=== PATIENT | female | born 1930 | race Caucasian/White ===

== ENCOUNTER → 2016-09-13 | Outpatient (CLI) | payer MEDICARE ==
--- NOTE | 2016-09-13 13:14 | REP ---
CHEST X-RAY PA AND LATERAL: 09/13/2016. Clinical history: Dyspnea and cough. Evaluate for pneumonia. Comparison: Chest x-ray 01/07/2014, CT chest 06/15/2009. Findings: Lungs are well inflated. There is some peribronchial thickening and streaky densities both lower lung zones that may reflect some bronchitis and/or reactive airway disease. There is some basilar fibrotic change as well. Underlying COPD with some bullous emphysematous changes are suggested. The heart is mildly enlarged. There is left atrial and ventricular enlargement. The aorta is calcified at the arch, ectatic but without much change. The pulmonary arteries are prominent centrally suggesting pulmonary artery hypertension. No effusion, dense consolidation or lung mass. Bony thorax shows degenerative changes without acute compression deformity. There is no free air. Impression: 1. Some infrahilar and lower lung zone changes of bronchitis or reactive airway disease without dense consolidation or pleural effusion. 2. Some mild cardiomegaly with left atrial and ventricular configuration. No edema. 3. 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 No aneurysm. Signed by Gagan Pablo MD 09/13/2016 08:19 P
== END ==
LOC: M LRY 11:26
PROVIDERS: ATTEND Nurse Practitioner Family
DX: J44.9 Chronic obstructive pulmonary disease, unspecified (principal); I51.7 Cardiomegaly
CPT/HCPCS: 71020; 87804; 94640; G0463

== ENCOUNTER → 2016-09-13 | Outpatient (CLI) | payer MEDICARE | LOC: M LRY 11:18 | PROVIDERS: ATTEND Nurse Practitioner Family | DX: J44.1 Chronic obstructive pulmonary disease with (acute) exacerbation (principal); R06.02 Shortness of breath ==

== ENCOUNTER 2019-01-07 21:22 | Emergency (ER) | payer MEDICARE ==
[~2019-01-07] VITALS: Ht 154.9 cm; Wt 58.6 kg
[2019-01-07] MEDS ORDERED: IPRATROPIUM 0.5MG/ALBUTEROL 2.5MG INH SOL UD 3ML (DUONEB)(J7620) NEB ONE (22:00)
[2019-01-07] MEDS ORDERED: dexameTHASONE 20 MG/5 ML VIAL (J1100) IV ONE (22:00)
[2019-01-07] MEDS ORDERED: ALBUTEROL SULFATE 2.5 MG/0.5 ML INH NEB SOLN INH ONE (22:00)
[2019-01-07 22:43] LABS: BASO % 0.7 % (0.0-1.0); EOS # 0.3 10^3/uL (0.0-0.50); EOS % 4.7 % (0.0-3.0); HEMATOCRIT 41.5 % (36.0-47.0); HEMOGLOBIN 12.9 g/dl (12.0-15.5); LYMPH # 1.9 10^3/uL (1.5-4.5); LYMPH % 35.6 % (24.0-44.0); MEAN CORPUSCULAR HEMOGLOBIN 26.8 pg (27.0-33.0); MEAN CORPUSCULAR HGB CONC 31.1 g/dl (32.0-36.5); MEAN CORPUSCULAR VOLUME 86.3 fl (80.0-96.0); MONO # 0.5 10^3/uL (0.0-0.8); MONO % 9.4 % (0.0-5.0); NEUTROPHILS # 2.6 10^3/uL (1.8-7.7); NEUTROPHILS % 49.2 % (36.0-66.0); PLATELET COUNT, AUTOMATED 265 10^3/uL (150-450); RED BLOOD COUNT 4.81 10^6/uL (4.00-5.40); WHITE BLOOD COUNT 5.3 10^3/uL (4.0-10.0)
[2019-01-07 23:13] LABS: ALBUMIN 3.2 GM/DL (3.2-5.2); ALT/SGPT 11 U/L (12-78); BILIRUBIN,DIRECT 0.1 MG/DL (0.0-0.2); BILIRUBIN,TOTAL 0.2 MG/DL (0.2-1.0); BLOOD UREA NITROGEN 14 MG/DL (7-18); CALCIUM LEVEL 8.9 MG/DL (8.8-10.2); CARBON DIOXIDE LEVEL 32 MEQ/L (21-32); CHLORIDE LEVEL 107 MEQ/L (98-107); CK-MB VALUE MASS 1.4 NG/ML (<3.6); CPK CREATINE PHOSPHOKINASE 34 U/L (26-192); CREATININE FOR GFR 0.73 MG/DL (0.55-1.30); GLOMERULAR FILTRATION RATE > 60.0 (>32); GLUCOSE, FASTING 93 MG/DL (70-100); MB/CK RELATIVE INDEX 4.12 (< OR =4); NT-PRO BNP 141 PG/ML (<450); POTASSIUM SERUM 4.5 MEQ/L (3.5-5.1); SODIUM LEVEL 142 MEQ/L (136-145); TOTAL PROTEIN 6.2 GM/DL (6.4-8.2); TROPONIN I < 0.02 NG/ML (< 0.10)
[2019-01-08] MEDS ORDERED: VENTAER INH (00:29)
[2019-01-08] MEDS ORDERED: PRED20TA PO (00:29)
[2019-01-08] MEDS ORDERED: ALBUTEROL 90 MCG/ACT 8GM HFA INHALER INH ONE (00:30)
[2019-01-08 00:45] VITALS: BP 103/59
--- NOTE | 2019-01-08 07:43 | REP ---
Portable chest, 10:10 p.m., single AP view with the patient upright: Comparison is 09/18/2016. Lung ch appear hyperinflated with crowding of the interstitial markings in the lower lung zones, compatible with COPD. The lung ch otherwise clear. Cardiac size is normal for portable positioning. The the courtney, mediastinum, skeletal structures are unremarkable. Impression: There are findings compatible with COPD. There are no acute cardiopulmonary findings. Electronically Signed by Corey Nance MD 01/08/2019 07:35 A
--- NOTE | 2019-01-08 19:25 | ECGEPIP ---
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
== END 2019-01-08 00:46 | disposition home or self-care (01) ==
LOC: M ED 21:22
DX: J44.1 Chronic obstructive pulmonary disease with (acute) exacerbation (principal); R94.31 Abnormal electrocardiogram [ECG] [EKG]; I10 Essential (primary) hypertension; Z88.0 Allergy status to penicillin; Z88.2 Allergy status to sulfonamides; Z91.012 Allergy to eggs
CPT/HCPCS: 36415; 71045; 80048; 80076; 82550; 82553; 83880; 84443; 84484; 85025; 93005; 93041; 94640; 94760; 96374; 99285; J1100

== ENCOUNTER 2019-05-23 18:58 | Inpatient (IN) | payer MEDICARE ==
[~2019-05-23] VITALS: Ht 160 cm; Wt 59.1 kg
[~2019-05-23 18:58] MED LIST: PRED20TA PO; VENTAER INH
[2019-05-23] MEDS ORDERED: LISI10TA4 PO (19:11)
[2019-05-23] MEDS ORDERED: CLIN-30 PO (19:11)
[2019-05-23] MEDS ORDERED: NYST10OI TOP (19:11)
[2019-05-23] MEDS ORDERED: FLUC100T PO (19:11)
[2019-05-23 19:59] LABS: HEMATOCRIT 43.5 % (36.0-47.0); HEMOGLOBIN 13.6 g/dl (12.0-15.5); LYMPH # 0.4 10^3/uL (1.5-5.0); MEAN CORPUSCULAR HGB CONC 31.3 g/dl (32.0-36.5); MEAN CORPUSCULAR VOLUME 86.3 fl (80.0-96.0); MONO # 0.1 10^3/uL (0.0-0.8); MONO % 1.2 % (0.0-5.0); NEUTROPHILS # 3.8 10^3/uL (1.5-8.5); NEUTROPHILS % 88.6 % (36.0-66.0); PLATELET COUNT, AUTOMATED 261 10^3/uL (150-450); RED BLOOD COUNT 5.04 10^6/uL (4.00-5.40); WHITE BLOOD COUNT 4.3 10^3/uL (4.0-10.0)
[2019-05-23] MEDS ORDERED: dexameTHASONE 20 MG/5 ML VIAL (J1100) IV ONE (20:00)
[2019-05-23 20:03] LABS: ABG BASE EXCESS -2.6 (-2.0-2.0); ABG HCO3 21.6 MEQ/L (22.0-26.0); ABG O2 SATURATION 93.4 % (95.0-99.0); ABG PARTIAL PRESSURE CO2 35.7 mmHg (35.0-45.0); ABG PARTIAL PRESSURE O2 65.9 mmHg (75.0-100.0); ABG STANDARD HCO3 22.2 MEQ/L (22.0-26.0); ABG TOTAL CO2 22.7 MEQ/L (23.0-31.0)
[2019-05-23] MEDS: IPRATROPIUM 0.5MG/ALBUTEROL 2.5MG INH SOL UD 3ML (DUONEB)(J7620) NEB SCH ×3 (20:03→21:22)
--- NOTE | 2019-05-23 20:18 | REP ---
Clinical: Dyspnea. Comparison: 01/07/2019. Findings: Stable cardiomegaly and diffuse COPD/interstitial disease. No obvious consolidation, effusion, or pneumothorax. Skeletal structures are intact. Impression: Chronic stable changes. No obvious acute consolidation or effusion. Electronically Signed by Rigo Botello MD 05/23/2019 08:09 P
[2019-05-23 20:22] LABS: BLOOD UREA NITROGEN 12 MG/DL (7-18); CALCIUM LEVEL 9.2 MG/DL (8.8-10.2); CARBON DIOXIDE LEVEL 26 MEQ/L (21-32); CHLORIDE LEVEL 103 MEQ/L (98-107); CPK CREATINE PHOSPHOKINASE 75 U/L (26-192); CREATININE FOR GFR 0.93 MG/DL (0.55-1.30); GLOMERULAR FILTRATION RATE > 60.0 (>32); GLUCOSE, FASTING 186 MG/DL (70-100); MB/CK RELATIVE INDEX 2.67 (< OR =4); NT-PRO BNP 232 PG/ML (<450); POTASSIUM SERUM 4.1 MEQ/L (3.5-5.1); SODIUM LEVEL 137 MEQ/L (136-145); TROPONIN I < 0.02 NG/ML (< 0.10)
[2019-05-23] MEDS ORDERED: ISOVUE-370 76% 100ML VIAL (Q9967) As Ordered ONE (20:26)
[2019-05-23] MEDS ORDERED: NS 500 ML IV ONE (20:30)
[2019-05-23] MEDS ORDERED: ALBU83IN INH (21:30)
[2019-05-23] MEDS ORDERED: MEMA14CA PO (21:30)
[2019-05-23] MEDS ORDERED: PRED20TA PO (21:30)
--- NOTE | 2019-05-23 21:46 | REPVR ---
PROCEDURE INFORMATION: Exam: CT Angiography Chest With Contrast Exam date and time: 05/23/2019 9:10 PM Clinical history: 89 years old, female; Dyspnea; Additional info: Dysp TECHNIQUE: Imaging protocol: Computed tomographic angiography of the chest with intravenous contrast. 3D rendering: MIP reconstructed images were created and reviewed. Radiation optimization: All CT scans at this facility use at least one of these dose optimization techniques: automated exposure control; mA and/or kV adjustment per patient size (includes targeted exams where dose is matched to clinical indication); or iterative reconstruction. Contrast material: ISOVUE 370; Contrast volume: 75 ml; Contrast route: IV; COMPARISON: CR Chest, 1 view 05/23/2019 7:59 PM FINDINGS: Pulmonary arteries: The main pulmonary artery measures 27 mm. No pulmonary embolism is identified. Aorta: The ascending thoracic aorta measures 32 mm. Lungs: Minimal diffuse bullous change. Slight interstitial prominence and minimal bibasilar fibro-atelectatic change. Calcified granuloma right upper lobe. Pleural space: Unremarkable. No pneumothorax. No pleural effusion. Heart: Coronary artery calcifications are present. The left atrium measures 4.3 cm in its AP dimension. Mediastinum: Internal debris or mucus along the distal trachea extending just into the right main bronchus. Lymph nodes: Unremarkable. No enlarged lymph nodes. Bones/joints: Unremarkable. No acute fracture. Soft tissues: Unremarkable. IMPRESSION: 1. Borderline cardiomegaly. 2. Minimal diffuse bullous change with slight interstitial prominence and minimal bibasilar fibro-atelectatic change. 3. Internal debris or mucus in the distal trachea and proximal right main bronchus. 4. No pulmonary embolism is identified. Electronically signed by: Cornelius Corcoran On 05/23/2019 21:45:48 PM
[2019-05-23] MEDS: LEVALBUTEROL 1.25 MG/0.5 ML CONCENTRATE NEB NEB SCH (23:07)
[2019-05-23] MEDS ORDERED: NICOTINE POLACRILEX 2 MG GUM PO PRN (23:15)
[2019-05-23] MEDS: DOXYCYCLINE HYCLATE 100 MG in D5W MINI-BAG PLUS 100 ML IV SCH (23:23)
[2019-05-23] MEDS ORDERED: NICOTINE 14 MG/24 HR TRANSDERMAL TD ONE (23:30)
--- NOTE | 2019-05-24 00:23 | HPE ---
DATE OF ADMISSION: 05/23/2019 PRIMARY CARE PHYSICIAN: Dr. Pascual Kilgore CHIEF COMPLAINT: Shortness of breath. HISTORY OF THE PRESENT ILLNESS: This is an 89-year-old DO NOT RESUSCITATE, DO NOT INTUBATE female with a history of chronic obstructive pulmonary disease (COPD), managed by his primary care physician, who was in her usual state of health with chronic cough and chronic shortness of breath but not oxygen dependent until two days ago. Patient went to the drug store to get her medications, along with her son, and she appeared to be coughing a lot more. Her neighbor called the son and the [id number] today because she was found to have shaking chills at home with worsening shortness of breath and wheezing despite nebulizer treatments every 4 hours at home. She has recently been given steroids and something for a yeast infection, was not breathing well and felt sick to her stomach, but did not have nausea or vomiting. Otherwise denied any headache. Did have some chills. No diarrhea. She lives alone with advancing dementia, but has not had any episodes of getting lost or leaving the stove on. Family is concerned about her living alone and would like to speak with social work program coordinator for placement in the future. 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 She otherwise has had no sick contacts. No sinus congestion. No chest pain, pressure, tightness, palpitations, lightheadedness. Denies any changes in appetite, but does not eat well per the family. [id number]-[id number] sometimes will make something and leave it for her, but patient usually will make her own meals. Patient has not had any falls, weakness but has been increasingly forgetful for the past few years, worrying the family that she will need placement soon. In the emergency room (ER), she was afebrile, 98.4, she had overt wheezing which did not improve with nebulizer treatment. She was given IV Decadron 20 mg. Hospitalist was called for admission. Chest x-ray shows chronic changes with no acute consolidation or effusion. CT chest showed no pulmonary embolism. There is internal debris/mucus in distal trachea and proximal right main bronchus, borderline cardiomegaly and minimal diffuse bullous change with prominence and minimal bibasilar fibro-atelectasis. Per the family, patient continues to smoke cigarettes - one pack a day, and she has been doing this for decades, refuses to quit. PAST MEDICAL HISTORY: COPD. Depression. Osteoporosis. Dyslipidemia. PAST SURGICAL HISTORY: Lumbar laminectomy. Colon cancer and resection. Right knee replacement. Bunionectomy. Bilateral cataract surgery. Left total knee replacement. ALLERGIES: To PENICILLIN, SULFA, and EGG YOLK. HOME MEDICATIONS: - albuterol 2.5 mg every 4 hours as needed - clindamycin 150 mg three times a day - fluconazole 100 mg daily - lisinopril 10 mg daily - Nystatin topically twice a day - prednisone 20 mg twice a day - memantine 14 mg daily SOCIAL HISTORY: Patient lives alone in a one-level home, five stairs into the home. Patient smokes a pack a day, has been smoking for over 50 years. No alcohol use. Retired high school educator. Patient is DO NOT RESUSCITATE, DO NOT INTUBATE. Healthcare proxy is the patient's son, Braulio Parmar, retired, . FAMILY HISTORY: Father had an motor vehicle accident at age 48, mother of a heart attack, age 58. Two sisters had coronary artery disease. REVIEW OF SYSTEMS: Per history of the present illness. 12-point system otherwise negative. PHYSICAL EXAMINATION: Temperature 98.4, pulse 100, respiratory rate 25, blood pressure 128/67, 74% on room air. Generally, patient is demented, unable to provide any history. She is sleeping but arousable, answers yes or no questions appropriately. There is no respiratory distress, able to speak in full sentences. No tracheal deviation. She is edentulous. No use of respiratory accessory muscles. No jugular venous distention (JVD). No thyromegaly. Lungs diminished, bilateral wheezing. Heart: S1, S2, sinus tachycardia. Abdomen is soft, nontender, nondistended. Extremities: No pitting edema. LABORATORY DATA: White count 4.3, hemoglobin 13, hematocrit 43, platelet count 261, 88% neutrophils, 10% lymphocytes. Sodium 137, potassium 4.1, chloride 103, bicarbonate 26, BUN 12, creatinine 0.93, glucose 186, calcium 9.2, total CK 75, MB fraction of 2, troponin less than 0.02, BNP of 232. CT chest: No pulmonary embolism, borderline cardiomegaly, bullous, , minimal bibasilar fibro-atelectasis, internal debris/mucus in the distal trachea and proximal right main bronchus. ASSESSMENT AND PLAN: An 89-year-old female, DO NOT RESUSCITATE, DO NOT INTUBATE (DNR, DNI) with a history of COPD, osteoporosis, dyslipidemia, depression, bilateral knee replacements, colon cancer with resection, presents with worsening shortness of breath, not improved with nebulizers at home, recently treated for a yeast infection with Diflucan and prednisone for COPD exacerbation as an outpatient. Admitted as an inpatient for two midnights due to failed therapy. IMPRESSION: 1. Acute COPD exacerbation. On nebulizer treatment every 4 hours with Xopenex due to tachycardia. Currently on supplemental oxygen due to hypoxia, doxycycline 100 mg every 12 hours, Bacid to decrease risk of Clostridium difficile. No obvious pneumonia on the CT of the chest. No pulmonary embolism. BNP is 200 and likely to have heart failure or fluid overload. 2. Acute hypoxic respiratory failure, 74% on room air. Currently on two liters nasal cannula with 96% on three liters nasal cannula. Patient has no pulmonary embolism on exam. Continue with Solu-Medrol and treatment for COPD exacerbation. No obvious pneumonia on CT chest. 3. Advanced dementia. May continue on her home dose of memantine. Patient's family is requesting social work consult for possible placement in the future. 4. Depression. No suicidal ideation. 5. Yeast infection. Continue on fluconazole. 6. Hypertension. If blood pressure permits, may resume home dose of lisinopril. Hold for systolic pressure less than 120 or creatinine greater than 1.5. CODE STATUS: DO NOT RESUSCITATE, DO NOT INTUBATE. DIET: COPD diet. MTDD
[2019-05-24 00:41] VITALS: BP 122/58
[2019-05-24] MEDS: methylPREDNISolone INJ 125 MG/2 ML VIAL (J2930) IV SCH ×2 (01:10→08:12)
[2019-05-24] MEDS: LEVALBUTEROL 1.25 MG/0.5 ML CONCENTRATE NEB NEB SCH ×6 (04:15→23:45)
[2019-05-24 05:59] VITALS: BP 135/68
[2019-05-24 06:43] LABS: HEMATOCRIT 38.8 % (36.0-47.0); HEMOGLOBIN 12.4 g/dl (12.0-15.5); MEAN CORPUSCULAR HEMOGLOBIN 26.4 pg (27.0-33.0); MEAN CORPUSCULAR VOLUME 82.7 fl (80.0-96.0); PLATELET COUNT, AUTOMATED 272 10^3/uL (150-450); RED BLOOD COUNT 4.69 10^6/uL (4.00-5.40)
[2019-05-24 07:11] LABS: BLOOD UREA NITROGEN 12 MG/DL (7-18); CALCIUM LEVEL 8.7 MG/DL (8.8-10.2); CARBON DIOXIDE LEVEL 26 MEQ/L (21-32); CHLORIDE LEVEL 106 MEQ/L (98-107); GLOMERULAR FILTRATION RATE > 60.0 (>32); GLUCOSE, FASTING 151 MG/DL (70-100); POTASSIUM SERUM 3.9 MEQ/L (3.5-5.1); SODIUM LEVEL 139 MEQ/L (136-145)
[2019-05-24] MEDS: OMEPRAZOLE 20 MG CAP PO SCH (08:13)
[2019-05-24] MEDS: DOXYCYCLINE HYCLATE 100 MG in D5W MINI-BAG PLUS 100 ML IV SCH ×2 (08:13→21:10)
[2019-05-24] MEDS: LACTOBACILLUS ACIDOPHILUS CAP (BACID) PO SCH ×2 (08:13→18:03)
[2019-05-24] MEDS: FLUCONAZOLE 100 MG TAB PO SCH (08:13)
[2019-05-24] MEDS: NICOTINE 14 MG/24 HR TRANSDERMAL TD SCH (08:14)
[2019-05-24] MEDS: LISINOPRIL 10 MG TAB PO SCH (08:14)
--- NOTE | 2019-05-24 08:47 | IPN ---
DATE: 05/24/2019 PRIMARY CARE PROVIDER: Dr. Jeffery Kilgore ATTENDING PHYSICIAN: Hospitalist service. HISTORY: Orly Tavera was seen on 5 sheth. Admitted with chronic obstructive pulmonary disease (COPD) exacerbation. She is more appropriate today. She is answering questions. She is still short of breath but says she feels better than yesterday. Denies any pleuritic pain, fever, chest pain. PHYSICAL EXAM: Vital signs: Stable. Oxygen saturation 90% on 2 liters. Afebrile. General appearance: Elderly, frail, lying in bed. Opens her eyes. Answers questions. HEENT: Unremarkable. Lungs: Expiratory wheezes in all ch. Heart: Regular rate and rhythm. Abdomen: Soft, nontender. No peripheral edema. LABS: CBC unremarkable. BMP unremarkable. IMPRESSION: 1. Chronic obstructive pulmonary disease exacerbation. Continue her current regimen of doxycycline (currently intravenous, will change to oral tomorrow). On nebulized bronchodilator and empiric IV steroids. Reducing his dose of steroid therapy as it might exacerbate her dementia. Patient has DO NOT RESUSCITATE/DO NOT INTUBATE status. 2. Dementia. Continue Namenda. Seeing this is fairly advanced placement is being pursued by family. 3. Hypertensive heart disease. Continue lisinopril 10 mg daily. 4. Tobacco abuse. She is on a nicotine substitution patch with nicotine gum as needed. I have ordered deep venous thrombosis (DVT) prophylaxis with Lovenox. Daily labs have been ordered.
[2019-05-24] MEDS: ENOXAPARIN 30 MG/0.3 ML SYR (J1650) SC SCH (10:24)
[2019-05-24 14:00] VITALS: BP 113/57
[2019-05-24 19:50] VITALS: BP 115/60
[2019-05-24] MEDS: ACETAMINOPHEN TAB 650MG DOSE (2X325MG) PO PRN (20:20)
[2019-05-24] MEDS: MEMANTINE 5MG TABLET (NAMENDA) PO SCH (20:20)
[2019-05-25] MEDS: LEVALBUTEROL 1.25 MG/0.5 ML CONCENTRATE NEB NEB SCH ×6 (03:38→23:25)
[2019-05-25] MEDS: ACETAMINOPHEN TAB 650MG DOSE (2X325MG) PO PRN ×2 (04:14→20:35)
[2019-05-25 05:30] VITALS: BP 131/82
[2019-05-25 06:24] LABS: HEMATOCRIT 42.2 % (36.0-47.0); MEAN CORPUSCULAR HEMOGLOBIN 25.8 pg (27.0-33.0); MEAN CORPUSCULAR HGB CONC 30.8 g/dl (32.0-36.5); MEAN CORPUSCULAR VOLUME 83.9 fl (80.0-96.0); PLATELET COUNT, AUTOMATED 294 10^3/uL (150-450); RED BLOOD COUNT 5.03 10^6/uL (4.00-5.40); WHITE BLOOD COUNT 14.8 10^3/uL (4.0-10.0)
[2019-05-25 06:47] LABS: BLOOD UREA NITROGEN 16 MG/DL (7-18); CALCIUM LEVEL 9.1 MG/DL (8.8-10.2); CARBON DIOXIDE LEVEL 27 MEQ/L (21-32); CHLORIDE LEVEL 108 MEQ/L (98-107); CREATININE FOR GFR 0.64 MG/DL (0.55-1.30); GLOMERULAR FILTRATION RATE > 60.0 (>32); GLUCOSE, FASTING 114 MG/DL (70-100); POTASSIUM SERUM 4.2 MEQ/L (3.5-5.1); SODIUM LEVEL 140 MEQ/L (136-145)
[2019-05-25] MEDS: LACTOBACILLUS ACIDOPHILUS CAP (BACID) PO SCH ×2 (08:33→17:30)
[2019-05-25] MEDS: methylPREDNISolone INJ 125 MG/2 ML VIAL (J2930) IV SCH (08:33)
[2019-05-25] MEDS: FLUCONAZOLE 100 MG TAB PO SCH (08:33)
[2019-05-25 08:34] VITALS: BP 135/81
[2019-05-25] MEDS: ENOXAPARIN 30 MG/0.3 ML SYR (J1650) SC SCH (08:34)
[2019-05-25] MEDS: LISINOPRIL 10 MG TAB PO SCH (08:34)
[2019-05-25] MEDS: NICOTINE 14 MG/24 HR TRANSDERMAL TD SCH (08:38)
[2019-05-25] MEDS: OMEPRAZOLE 20 MG CAP PO SCH (08:38)
[2019-05-25] MEDS: DOXYCYCLINE HYCLATE 100 MG TAB PO SCH ×2 (09:26→20:35)
--- NOTE | 2019-05-25 11:41 | ECGEPIP ---
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
--- NOTE | 2019-05-25 12:09 | IPN ---
DATE: 05/25/2019 Orly is more alert today. She is a little frustrated about her apparently having recurrent upper respiratory infections. Denies any shortness of breath. She says she feels better than yesterday. PHYSICAL EXAM: Afebrile. Vital signs stable. Oxygen saturation is 92% on 2 liters. Alert, conversant. Answers questions with appropriate answers. HEENT: Unremarkable. Lungs: Expiratory wheezes in all ch. Heart: Regular rate and rhythm. Abdomen: Soft, nontender. No peripheral edema. She has no retractions. LABS: White count is 14.8 (on steroids), hemoglobin 13, platelets 294. Electrolytes unremarkable. Creatinine is normal. IMPRESSION: 1. Chronic obstructive pulmonary disease (COPD) exacerbation improving on current regimen of doxycycline (changed to oral today), nebulized bronchodilator and intravenous (IV) steroids. 2. Dementia. Continue Namenda. She seems more alert today. Family is pursuing placement. 3. Hypertensive heart disease. Continue lisinopril 10 mg daily. 4. Tobacco abuse. Continue current nicotine substitution with nicotine patch and gum.
[2019-05-25 14:00] VITALS: BP 152/84
[2019-05-25] MEDS: MEMANTINE 5MG TABLET (NAMENDA) PO SCH (20:34)
[2019-05-25 21:16] VITALS: BP 149/85
[2019-05-26] MEDS: LEVALBUTEROL 1.25 MG/0.5 ML CONCENTRATE NEB NEB SCH ×6 (03:49→23:30)
[2019-05-26 05:44] VITALS: BP 160/87
[2019-05-26 06:43] LABS: HEMATOCRIT 43.6 % (36.0-47.0); HEMOGLOBIN 13.7 g/dl (12.0-15.5); MEAN CORPUSCULAR HEMOGLOBIN 26.2 pg (27.0-33.0); MEAN CORPUSCULAR HGB CONC 31.4 g/dl (32.0-36.5); MEAN CORPUSCULAR VOLUME 83.5 fl (80.0-96.0); PLATELET COUNT, AUTOMATED 317 10^3/uL (150-450); RED BLOOD COUNT 5.22 10^6/uL (4.00-5.40); WHITE BLOOD COUNT 11.4 10^3/uL (4.0-10.0)
[2019-05-26 07:04] LABS: BLOOD UREA NITROGEN 17 MG/DL (7-18); CALCIUM LEVEL 8.8 MG/DL (8.8-10.2); CARBON DIOXIDE LEVEL 27 MEQ/L (21-32); CHLORIDE LEVEL 105 MEQ/L (98-107); CREATININE FOR GFR 0.72 MG/DL (0.55-1.30); GLOMERULAR FILTRATION RATE > 60.0 (>32); GLUCOSE, FASTING 113 MG/DL (70-100); POTASSIUM SERUM 3.7 MEQ/L (3.5-5.1); SODIUM LEVEL 139 MEQ/L (136-145)
[2019-05-26] MEDS: methylPREDNISolone INJ 125 MG/2 ML VIAL (J2930) IV SCH (08:15)
[2019-05-26] MEDS: ENOXAPARIN 30 MG/0.3 ML SYR (J1650) SC SCH (08:15)
[2019-05-26] MEDS: DOXYCYCLINE HYCLATE 100 MG TAB PO SCH ×2 (08:15→20:10)
[2019-05-26] MEDS: LACTOBACILLUS ACIDOPHILUS CAP (BACID) PO SCH ×2 (08:15→18:31)
[2019-05-26] MEDS: FLUCONAZOLE 100 MG TAB PO SCH (08:15)
[2019-05-26] MEDS: OMEPRAZOLE 20 MG CAP PO SCH (08:15)
[2019-05-26] MEDS: LISINOPRIL 10 MG TAB PO SCH (08:16)
[2019-05-26] MEDS: NICOTINE 14 MG/24 HR TRANSDERMAL TD SCH (08:16)
--- NOTE | 2019-05-26 09:48 | IPN ---
DATE: 05/26/2019 Orly is doing well. Her shortness of breath is much improved. She would like to go home and I think that family is planning placement. PHYSICAL EXAMINATION: Afebrile. Vital signs stable, 160/87. Alert, conversant, no distress. LUNGS: Clear. Air movement was quite good today. HEART: Regular rhythm. ABDOMEN: Soft, nontender. No peripheral edema. LABORATORY DATA: CBC: White count 11.4 on steroids. Hemoglobin is stable. Electrolytes unremarkable. IMPRESSION: 1. Exacerbation of chronic obstructive pulmonary disease (COPD), secondary to presumed bronchitis. Continue on doxycycline 100 mg twice a day, nebulized bronchodilator. We will stop her Solu-Medrol and put her on oral prednisone 20 mg by mouth daily for 5 days. I do not think that she needs to be tapered on this as she is not typically on chronic steroids. 2. Dementia. Continue Namenda. 3. Hypertensive heart disease. Blood pressure is mildly elevated, probably related to steroids. It is not high enough to warrant adjusting her medications at this point. DISPOSITION: Family is pursuing placement. Patient and family services (PFS) will need to get involved with this today. The patient will probably be ready for intermediate facility (SNF) level of care tomorrow.
[2019-05-26 14:00] VITALS: BP 122/81
[2019-05-26 20:00] VITALS: BP 144/86
[2019-05-26] MEDS: MEMANTINE 5MG TABLET (NAMENDA) PO SCH (20:10)
[2019-05-26] MEDS: ACETAMINOPHEN TAB 650MG DOSE (2X325MG) PO PRN (20:11)
[2019-05-27] MEDS: LEVALBUTEROL 1.25 MG/0.5 ML CONCENTRATE NEB NEB SCH ×3 (04:01→12:07)
[2019-05-27 06:09] VITALS: BP 152/82
[2019-05-27 07:03] LABS: HEMATOCRIT 44.4 % (36.0-47.0); HEMOGLOBIN 13.5 g/dl (12.0-15.5); MEAN CORPUSCULAR HEMOGLOBIN 25.4 pg (27.0-33.0); MEAN CORPUSCULAR HGB CONC 30.4 g/dl (32.0-36.5); MEAN CORPUSCULAR VOLUME 83.6 fl (80.0-96.0); PLATELET COUNT, AUTOMATED 303 10^3/uL (150-450); RED BLOOD COUNT 5.31 10^6/uL (4.00-5.40); WHITE BLOOD COUNT 7.9 10^3/uL (4.0-10.0)
[2019-05-27 07:24] LABS: BLOOD UREA NITROGEN 17 MG/DL (7-18); CALCIUM LEVEL 9.1 MG/DL (8.8-10.2); CARBON DIOXIDE LEVEL 32 MEQ/L (21-32); CHLORIDE LEVEL 103 MEQ/L (98-107); CREATININE FOR GFR 0.77 MG/DL (0.55-1.30); GLOMERULAR FILTRATION RATE > 60.0 (>32); GLUCOSE, FASTING 86 MG/DL (70-100); POTASSIUM SERUM 3.9 MEQ/L (3.5-5.1); SODIUM LEVEL 139 MEQ/L (136-145)
[2019-05-27] MEDS: LACTOBACILLUS ACIDOPHILUS CAP (BACID) PO SCH (07:46)
[2019-05-27] MEDS: OMEPRAZOLE 20 MG CAP PO SCH (07:46)
[2019-05-27] MEDS: ENOXAPARIN 30 MG/0.3 ML SYR (J1650) SC SCH (07:47)
[2019-05-27] MEDS: DOXYCYCLINE HYCLATE 100 MG TAB PO SCH (07:47)
[2019-05-27] MEDS: FLUCONAZOLE 100 MG TAB PO SCH (07:48)
[2019-05-27] MEDS: LISINOPRIL 10 MG TAB PO SCH (07:49)
[2019-05-27] MEDS ORDERED: predniSONE 20 MG TAB PO SCH (09:00)
--- NOTE | 2019-05-27 13:18 | DS.PDOC ---
Discharge Summary General Date of Admission May 23, 2019 at 22:22 Date of Discharge 05/27/2019 Attending Physician: HALIMA ROA MD Discharge Summary PROCEDURES PERFORMED DURING STAY: None. ADMITTING DIAGNOSES: 1. COPD exacerbation. DISCHARGE DIAGNOSES: 1.. COPD exacerbation COMPLICATIONS/CHIEF COMPLAINT: Copd With Acute Exacerbation. HISTORY OF PRESENT ILLNESS: 89-year-old female with past medical history of hypertension and COPD, was admitted for COPD exacerbation, treated with supplemental oxygen, nebulizer treatments, IV steroids with significant improvement in symptoms. She is currently on room air, ambulating around the unit without difficulty, denies any shortness of breath, clinically significantly improved since admission, close to baseline, will be discharged with outpatient follow-up. Patient is adamant that she will be going home, does not want to discuss any potential rehabilitation/long term placement, family concerned about patient is developing early signs of dementia, patient appears to be well and passed home safety evaluation by physical therapy. HOSPITAL COURSE: As above. DISCHARGE MEDICATIONS: Please see below. ALLERGIES: Please see below. PHYSICAL EXAMINATION: VITAL SIGNS: Please see below. GENERAL: No distress HEENT: Normocephalic, atraumatic, moist mucous membranes NECK: Supple CARDIOVASCULAR EXAMINATION: S1, S2, no murmurs RESPIRATORY EXAMINATION: Slightly diminished, scattered rhonchi ABDOMINAL EXAMINATION: Soft, nontender, nondistended, positive bowel sounds EXTREMITIES: Range of motion intact SKIN: No rash NEUROLOGICAL EXAMINATION: Alert and oriented 3, no focal deficits PSYCHIATRIC EXAMINATION: Calm and cooperative LABORATORY DATA: Please see below. PROGNOSIS: Fair ACTIVITY: As tolerated. DIET: Cardiac DISCHARGE PLAN: Patient will follow with PCP in 1-2 weeks DISPOSITION: Home. DISCHARGE INSTRUCTIONS: 1. As above. DISCHARGE CONDITION: Stable. TIME SPENT ON DISCHARGE: Greater than 35 minutes. Vital Signs/I&Os Vital Signs Date Time Temp Pulse Resp B/P (MAP) Pulse Ox O2 Delivery O2 Flow Rate FiO2 05/27/19 07:45 2.0 05/27/19 06:09 98.2 70 16 152/82 (105) 98 Nasal Cannula I&O- Last 24 Hours up to 6 AM 05/27/19 06:00 Intake Total 2160 ml Output Total 2500 ml Balance -340 ml Laboratory Data Labs 24H Laboratory Tests 2 05/27/19 06:41: Nucleated Red Blood Cells % (auto) 0.0, Anion Gap 4L, Glomerular Filtration Rate > 60.0, Calcium Level 9.1 CBC/BMP Laboratory Tests 05/27/19 06:41 Microbiology Microbiology 05/24/19 Urine Culture - Final, Complete 05/23/19 Blood Culture - Preliminary, Resulted No Growth after 72 hours. All specime... Discharge Medications Scheduled Lisinopril (Lisinopril) 10 Mg Tablet, 10 MG PO DAILY, (Reported) Memantine HCl (Memantine HCl ER) 14 Mg Cap.spr.24, 14 MG PO DAILY, (Reported) Nystatin (Nystatin) 15 Gm Oint...g., 1 APLCT TOP BID, (Reported) APPLY TO VAGINA AND GROIN Scheduled PRN Albuterol Sulf (Albuterol Sulfate) 2.5 Mg/3 Ml Vial.neb, 2.5 MG INH Q4H PRN for SOB/WHEEZING, (Reported) Allergies Coded Allergies: Penicillins (Verified Allergy, Intermediate, unknown, 01/07/19) Sulfa (Sulfonamide Antibiotics) (Verified Allergy, Intermediate, unknown, 01/07/19) egg yolk (Verified Allergy, Intermediate, n/v & blisters, 01/07/19) nicotine (Verified Adverse Reaction, Unknown, "bad Dreams", 05/27/19) HALIMA ROA MD May 27, 2019 13:18
[2019-05-27 14:00] VITALS: BP 147/89
== END 2019-05-27 15:19 | disposition home or self-care (01) | DRG 189 ==
LOC: M ED 18:58 → M ED INP 22:22 → M MS5PR 05-24 00:27
PROVIDERS: ADMIT General Practice; ATTEND General Practice
DX: J96.01 Acute respiratory failure with hypoxia (principal); J44.0 Chronic obstructive pulmonary disease with (acute) lower respiratory infection; J44.1 Chronic obstructive pulmonary disease with (acute) exacerbation; Z66 Do not resuscitate; Z99.81 Dependence on supplemental oxygen; B37.9 Candidiasis, unspecified; F17.210 Nicotine dependence, cigarettes, uncomplicated; F32.9 Major depressive disorder, single episode, unspecified; M19.90 Unspecified osteoarthritis, unspecified site; E78.5 Hyperlipidemia, unspecified; Z98.1 Arthrodesis status; Z85.038 Personal history of other malignant neoplasm of large intestine; Z98.41 Cataract extraction status, right eye; Z98.42 Cataract extraction status, left eye; Z96.651 Presence of right artificial knee joint; Z96.652 Presence of left artificial knee joint; Z79.51 Long term (current) use of inhaled steroids; Z79.52 Long term (current) use of systemic steroids; Z79.899 Other long term (current) drug therapy; F03.90 Unspecified dementia, unspecified severity, without behavioral disturbance, psychotic disturbance, mood disturbance, and anxiety; I11.0 Hypertensive heart disease with heart failure; I50.9 Heart failure, unspecified; M81.0 Age-related osteoporosis without current pathological fracture